=== PATIENT | female | born 1980 | race Caucasian/White ===

== ENCOUNTER 2017-02-05 13:17 | Emergency (ER) | payer OTHER ==
[~2017-02-05] VITALS: Ht 167.6 cm; Wt 72.7 kg
[2017-02-05 14:05] LABS: BASO % 1 % (0-3); EOS % 0 % (0-3); HEMOGLOBIN 16.4 g/dL (12.0-15.5); LYMPH # 1.3 x10^3/uL (1.0-4.8); LYMPH % 21 % (24-48); MEAN CORPUSCULAR HEMOGLOBIN 43 pg (25-35); MEAN CORPUSCULAR HGB CONC 34 g/dL (31-37); MEAN CORPUSCULAR VOLUME 125 fL (79-100); MONO % 9 % (0-9); NEUT % 70 % (31-73); PLATELET COUNT 184 x10^3/uL (140-400); RED BLOOD COUNT 3.85 x10^6/uL (3.50-5.40); RED CELL DISTRIBUTION WIDTH 15.5 % (11.5-14.5); WHITE BLOOD COUNT 6.2 x10^3/uL (4.0-11.0)
[2017-02-05 14:19] LABS: NEG OBC SER NEG; POS OBC SER POS
[2017-02-05 14:20] LABS: CALCIUM 8.9 mg/dL (8.5-10.1); CREATININE 0.7 mg/dL (0.6-1.0); GFR 94.2; POTASSIUM 3.5 mmol/L (3.5-5.1)
[2017-02-05 15:02] LABS: PLT ESTIMATE DECREASED (ADEQUATE)
[2017-02-05 15:03] LABS: OVALOCYTES OCC; POLYCHROMASIA SLIGHT; STOMATOCYTES OCC
[2017-02-05 16:50] VITALS: BP 132/78
--- NOTE | 2017-02-05 18:21 | ED.ADGEN ---
Past Medical History Past Medical History: No Pertinent History Past Surgical History: No Surgical History Alcohol Use: Occasionally Drug Use: None Adult General Chief Complaint Chief Complaint: CELLULITIS HPI HPI Patient is a 36 year old female presents with swelling, redness and blistering of both feet. Symptoms began 2 weeks ago first began on left foot. Patient had blistering left forefoot after being outdoors all day. Blister eventually ruptured and in patient was subsequently seen at [facility] and diagnosed with left foot cellulitis described cellulitis. Since that time medication patient has been compliant with antibiotics and has been applying tree sap to both feet. Patient reports increased redness swelling and blistering of both feet. She also reports swimming in fresh water all being treated for cellulitis. She does have a fever chills, arthralgias myalgias are secondary complaints. She is nondiabetic and denies chronic illness. Patient seen a second time at [facility]'s morning referred to the ED for further evaluation. Patient does not currently have a primary care provider. Review of Systems Review of Systems Review symptoms as per history of present illness. All other review symptoms are negative. Allergies Allergies Allergies Coded Allergies Type Severity Reaction Last Updated Verified No Known Drug Allergies 02/05/17 No Physical Exam Physical Exam Constitutional: Well developed, well nourished, no acute distress, non-toxic appearance. HENT: Normocephalic, atraumatic, bilateral external ears normal, oropharynx moist. Eyes: PERRL. Neck: Normal range of motion/ Cardiovascular:Heart rate regular rhythm, no murmur. Lungs & Thorax: Bilateral breath sounds clear to auscultation. Abdomen: Bowel sounds normal. Skin: Confluent patches of brauny erythema and of both feet and blistering of right forefoot. Streaking, crusting or induration. Back: No tenderness. Extremities: 2+ pitting edema. Neurologic: Alert and oriented X 3, normal motor function, normal sensory function, no focal deficits noted. Psychologic: Affect normal, judgement normal, mood normal. Current Patient Data Vital Signs Vital Signs Date Time Temp Pulse Resp B/P (MAP) Pulse Ox O2 Delivery O2 Flow Rate FiO2 02/05/17 16:50 85 20 132/78 (96) 89 Room Air 02/05/17 13:27 98.2 98.2 Lab Values Laboratory Tests Test 02/05/17 12:44 02/05/17 13:53 POC Urine HCG, Qualitative Hcg negative (Negative) White Blood Count 6.2 x10^3/uL (4.0-11.0) Red Blood Count 3.85 x10^6/uL (3.50-5.40) Hemoglobin 16.4 g/dL (12.0-15.5) H Hematocrit 48.0 % (36.0-47.0) H Mean Corpuscular Volume 125 fL (79-100) H Mean Corpuscular Hemoglobin 43 pg (25-35) H Mean Corpuscular Hemoglobin Concent 34 g/dL (31-37) Red Cell Distribution Width 15.5 % (11.5-14.5) H Platelet Count 184 x10^3/uL (140-400) Neutrophils (%) (Auto) 70 % (31-73) Lymphocytes (%) (Auto) 21 % (24-48) L Monocytes (%) (Auto) 9 % (0-9) Eosinophils (%) (Auto) 0 % (0-3) Basophils (%) (Auto) 1 % (0-3) Neutrophils # (Auto) 4.3 x10^3uL (1.8-7.7) Lymphocytes # (Auto) 1.3 x10^3/uL (1.0-4.8) Monocytes # (Auto) 0.5 x10^3/uL (0.0-1.1) Eosinophils # (Auto) 0.0 x10^3/uL (0.0-0.7) Basophils # (Auto) 0.0 x10^3/uL (0.0-0.2) Platelet Estimate Decreased (ADEQUATE) Large Platelets Occ Polychromasia Slight Macrocytosis Slight Ovalocytes Occ Stomatocytes Occ Sodium Level 136 mmol/L (136-145) Potassium Level 3.5 mmol/L (3.5-5.1) Chloride Level 98 mmol/L (98-107) Carbon Dioxide Level 29 mmol/L (21-32) Anion Gap 9 (6-14) Blood Urea Nitrogen 2 mg/dL (7-20) L Creatinine 0.7 mg/dL (0.6-1.0) Estimated GFR (Cockcroft-Gault) 94.2 Glucose Level 88 mg/dL (70-99) Calcium Level 8.9 mg/dL (8.5-10.1) Serum Test, Qualitative Negative (NEG) Laboratory Tests 02/05/17 13:53 Laboratory Tests 02/05/17 13:53 EKG EKG [] Radiology/Procedures Radiology/Procedures [] Course & Med Decision Making Course & Med Decision Making Pertinent Labs and Imaging studies reviewed. (See chart for details) [Bipedal edema with nonspecific rash with blistering to right foot. Patient denies fever chills or arthralgias myalgias or other infectious symptoms. Compliant with Keflex. Case reviewed with Dr. Currie on-call for dermatology who agrees to see patient in follow-up in office tomorrow morning. In the interim, patient instructed to take Benadryl and continue cephalexin. Patient noted to be hypertensive 140s over 107. Blood pressure normal prior to departure. Lab reviewed and unremarkable. Dragon Disclaimer Dragon Disclaimer This electronic medical record was generated, in whole or in part, using a voice recognition dictation system. MATTY THORPE DO Feb 05, 2017 18:21
== END 2017-02-05 16:22 | disposition home or self-care (01) ==
LOC: ER 13:22
DX: S90.822A Blister (nonthermal), left foot, initial encounter (principal); R60.0 Localized edema; I10 Essential (primary) hypertension; X58.XXXA Exposure to other specified factors, initial encounter; Y93.89 Activity, other specified; Y92.89 Other specified places as the place of occurrence of the external cause; Y99.8 Other external cause status
CPT/HCPCS: 36415; 80048; 81025; 84703; 85007; 85027; 99284